=== PATIENT | male | born 1965 | race Caucasian/White ===

== ENCOUNTER 2016-07-03 20:20 | Emergency (ER) | payer BC ==
[2016-07-03 21:25] VITALS: TEMP 98.7
[2016-07-03] MEDS ORDERED: ONDANSETRON ODT 4 MG TAB PO STA (22:06)
[2016-07-03] MEDS ORDERED: MORPHINE SULFATE 10 MG/ML SYRINGE IM STA (22:06)
--- NOTE | 2016-07-03 22:06 | ED ---
General Adult HPI - General Chief complaint: Abdominal Pain Stated complaint: Abd Pain/Back Pain/Poss Stones Time Seen by Provider: 07/03/16 21:50 Source: patient, RN notes reviewed Mode of arrival: ambulatory Limitations: no limitations - History of Present Illness Initial comments: This is a 51-year-old male presents with left flank pain from a known kidney stone. Patient states he was diagnosed with a left renal calculi 2 weeks ago and states it is 8 mm. Patient states he has not had any pain from the stone until today. Patient states the pain radiates to the front of his abdomen and is intermittent. Patient states his pain is 9.5 out of 10. Patient states he has some nausea when the pain gets really bad. Patient denies any vomiting, fever/chills, change in bowel or bladder function, hematuria or hematochezia. Patient states this pain is similar to pain he has had with renal stones in the past. Patient states he is scheduled for lithotripsy on 07/15/2016. Patient denies any recent fever, chills, shortness breath, chest pain, vomiting/diarrhea , back pain, numbness, tingling, headache, or visual changes, or any other complaints. - Related Data Home Medications Medication Instructions Recorded Confirmed Brimonidine Tartrate [Alphagan P 1 drops BOTH EYES BID 07/03/16 07/03/16 0.15% Ophth Soln] Levobunolol HCl [Betagan 0.5%] 1 drop LEFT EYE BID 07/03/16 07/03/16 Loteprednol Etabonate [Lotemax] 1 drop LEFT EYE BID 07/03/16 07/03/16 Previous Rx's Medication Instructions Recorded Naproxen [Naprosyn] 250 mg PO BID 7 Days 07/03/16 Tamsulosin HCl [Flomax] 0.4 mg PO DAILY 3 Days 07/03/16 Allergies Allergy/AdvReac Type Severity Reaction Status Date / Time amoxicillin Allergy Rash/Hives Verified 07/03/16 22:21 Review of Systems ROS Statement: Those systems with pertinent positive or pertinent negative responses have been documented in the HPI. ROS Other: All systems not noted in ROS Statement are negative. Past Medical History Additional Past Medical History / Comment(s): kidney stone, glaucoma History of Any Multi-Drug Resistant Organisms: None Reported Additional Past Surgical History / Comment(s): eye surgery Past Psychological History: No Psychological Hx Reported Smoking Status: Never smoker Past Alcohol Use History: Occasional Past Drug Use History: None Reported General Exam - General Exam Comments Initial Comments: General: The patient is awake and alert, in no distress, and does not appear acutely ill. Eye: Pupils are equal, round and reactive to light, extra-ocular movements are intact. No nystagmus. There is normal conjunctiva bilaterally. No signs of icterus. Ears: TMs pink and pearly with intact cone of light bilaterally. Normal external ear canals Nose: Nasal turbinates pink and moist Mouth and throat: There are moist mucous membranes and no oral lesions. Neck: The neck is supple, there is no tenderness or JVD. Cardiovascular: There is a regular rate and rhythm. No murmur, rub or gallop is appreciated. Respiratory: Lungs are clear to auscultation, respirations are non-labored, breath sounds are equal. No wheezes, stridor, rales, or rhonchi. Gastrointestinal: Soft, non-distended, non-tender abdomen without masses or organomegaly noted. There is no rebound or guarding present. No CVA tenderness. Bowel sounds are unremarkable. Musculoskeletal: Normal ROM, no tenderness. Strength 5/5. Sensation intact. Radial pulses equal bilaterally 2+. Neurological: A&O x 3. CN II-XII intact, There are no obvious motor or sensory deficits. Coordination appears grossly intact. Speech is normal. Skin: Skin is warm and dry and no rashes or lesions are noted. Psychiatric: Cooperative, appropriate mood & affect, normal judgment. Limitations: no limitations Course Vital Signs 07/03/16 07/03/16 21:23 23:37 Temperature 98.7 F 98.7 F Pulse Rate 100 65 Respiratory 20 18 Rate Blood Pressure 156/92 128/87 O2 Sat by Pulse 97 99 Oximetry Medical Decision Making - Medical Decision Making This is a 51-year-old male presents with pain from a left renal calculi. On physical exam patient is afebrile in the EC. Abdomen is soft and nontender. No CVA tenderness. Patient is given morphine and zofran in the EC for pain and nausea. Patient states his symptoms have improved after this. Patient was receptive to being discharged home at this point. Patient will be given a prescription for Flomax and Naprosyn. I discussed return parameters. Patient refuses prescription for Zofran. I discussed the patient should follow-up with his urologist tomorrow or return to the EC for any worsening symptoms or for any further concerns. Patient and were receptive to this plan and patient was discharged home. I discussed this case with attending physician Dr. Doan who agrees with plan as stated above. Disposition Clinical Impression: Renal calculus, left Disposition: HOME SELF-CARE Condition: Good Instructions: Kidney Stones (ED) Additional Instructions: Please use medication as discussed. Please follow-up with urologist tomorrow. Please follow-up with family doctor in the next 2 days of symptoms have not improved. Please return to emergency room if the symptoms increase or worsen or for any other concerns. Prescriptions: Naproxen [Naprosyn] 250 mg PO BID 7 Days Tamsulosin HCl [Flomax] 0.4 mg PO DAILY 3 Days Referrals: Paddy Holland MD [STAFF PHYSICIAN] - 1-2 days None,Stated [Primary Care Provider] - 1-2 days Williams Knowles MD [STAFF PHYSICIAN] - 1-2 days Time of Disposition: 23:23
[2016-07-03 23:38] VITALS: BP 128/87; PULSE 65; RESP 18
== END 2016-07-03 23:37 | disposition home or self-care (01) ==
LOC: EC 20:20
DX: N20.0 Calculus of kidney (principal); Z79.1 Long term (current) use of non-steroidal anti-inflammatories (NSAID); Z79.899 Other long term (current) drug therapy; Z88.0 Allergy status to penicillin; H40.9 Unspecified glaucoma; Z87.442 Personal history of urinary calculi
CPT/HCPCS: 99283; 96372; J2270

== ENCOUNTER → 2016-07-08 | Outpatient (CLI) | payer BC ==
[2016-07-08 09:31] LABS: EKG EKG PERFORMED
[2016-07-08 10:03] LABS: Basophils # (A) 0.1 k/uL (0-0.2); Basophils % (A) 1 %; CH 31.8; CHCM 33.5; Eosinophils # (A) 0.1 k/uL (0-0.7); Eosinophils % (A) 2 %; HCT 45.4 % (39.0-53.0); HDW 2.47; HGB 14.9 gm/dL (13.0-17.5); Luc # (Auto) 0.19; Luc % (Auto) 4; Lymphocytes # (A) 1.3 k/uL (1.0-4.8); Lymphocytes % (A) 23 %; MCH 31.4 pg (25.0-35.0); MCHC 32.9 g/dL (31.0-37.0); MCV 95.3 fL (80.0-100.0); Monocytes # (A) 0.3 k/uL (0-1.0); Monocytes % (A) 5 %; Neutrophils # (A) 3.7 k/uL (1.3-7.7); Neutrophils % (A) 66 %; RBC 4.76 m/uL (4.30-5.90); RDW 13.2 % (11.5-15.5); WBC 5.6 k/uL (3.8-10.6); WBC (Perox) 5.79
[2016-07-08 10:10] LABS: Partial Thromboplastin Time 23.6 sec (22.0-30.0); Prothrombin Time 10.5 sec (9.0-12.0)
[2016-07-08 10:18] LABS: Anion Gap 11 mmol/L; Blood Urea Nitrogen 21 mg/dL (9-20); Calcium 9.6 mg/dL (8.4-10.2); Carbon Dioxide 29 mmol/L (22-30); Chloride 102 mmol/L (98-107); Glucose 95 mg/dL (74-99); Non-African American GFR(MDRD) >60 (>60 ml/min/1.73 sqM); Sodium 142 mmol/L (137-145)
== END | disposition home or self-care (01) ==
LOC: LABPAT 09:21
PROVIDERS: ATTEND Urology
DX: Z01.818 Encounter for other preprocedural examination (principal); N20.0 Calculus of kidney; R06.02 Shortness of breath; R31.0 Gross hematuria; R35.0 Frequency of micturition; R53.83 Other fatigue
CPT/HCPCS: 80048; 85025; 85610; 85730; 87086; 93005

== ENCOUNTER 2016-07-15 07:21 | Day surgery (SDC) | payer BC ==
[2016-07-10 14:22] VITALS: BMI 24.3
[~2016-07-15 07:21] MED LIST: DEXAMETHASONE SOD PHOSPHATE 10 MG/ML 1 ML VIAL IV ONE; HYDROmorphone 1 MG/ML 1 ML SYRINGE IVP PRN; LACTATED RINGERS 1,000 ML IV SCH; LIDOCAINE 1% 20 ML VIAL (10MG/ML) FOR IV START INTRADERMA PRN; Pre Op ABX Message 1 EACH MISC MISCELLANE ONE
--- NOTE | 2016-07-15 07:24 | XR ---
EXAMINATION TYPE: XR KUB DATE OF EXAM: 07/15/2016 7:14 AM CLINICAL HISTORY: Flank pain and hematuria. TECHNIQUE: Single supine KUB image of the abdomen is obtained. COMPARISON: None. FINDINGS: There are 2-4 scattered calculi in left kidney identified. Evaluation is suboptimal due to overlying fecal material. Largest calculus measures 6 mm on long axis at the L3 vertebral body level in the lower pole. Rounded calcifications in the bilateral pelvis favor phleboliths. There is overall nonobstructive bowel gas pattern. Visualized osseous structures are intact. Os aceta buli on the right is noted. IMPRESSION: Left-sided nephrolithiasis as noted above.
[2016-07-15 07:45] VITALS: RESP 18; TEMP 98
[2016-07-15] MEDS ORDERED: LIDOCAINE 1% 20 ML VIAL (10MG/ML) FOR IV START INTRADERMA ONE (08:01)
[2016-07-15] MEDS ORDERED: LIDOCAINE 1% INJ 10MG/ML (20 ML MDV) ONE (08:15)
[2016-07-15] MEDS ORDERED: PROPOFOL 10 MG/ML 20 ML VIAL IV ONE (08:15)
[2016-07-15] MEDS ORDERED: MIDAZOLAM 2 MG/2 ML VIAL ONE (08:15)
[2016-07-15] MEDS ORDERED: fentaNYL (PF) 50 MCG/ML 2 ML AMP ONE (08:15)
--- NOTE | 2016-07-15 08:35 | P.OP ---
Date of Procedure: 07/15/16 Preoperative Diagnosis: Left renal stone Postoperative Diagnosis: Same Procedure(s) Performed: Extracorporeal shockwave lithotripsy left, 1500 shocks at energy level IV Anesthesia: MAC Surgeon: Steven Lara Pathology: none sent Condition: stable Disposition: PACU Indications for Procedure: The patient is a 51-year-old gentleman with a painful 6-7 mm left lower pole stone and comes for shockwave lithotripsy Description of Procedure: Patient was brought to the operating suite and placed on the lithotripsy table. The stone was seen in 2 views of fluoroscopy. A total of 1500 shocks at energy level IV administered to the stone and its fragments. The stone breaks up nicely. At the end of the procedure the patient's awake and returned recovery room good condition. He'll be discharged home upon recovery and follow -up in the office later this week.
[2016-07-15 09:18] VITALS: BP 137/89; PULSE 89
== END 2016-07-15 10:10 | disposition home or self-care (01) ==
LOC: ORWHC2ENDO 07:21
PROVIDERS: ATTEND Urology
DX: N20.0 Calculus of kidney (principal); Z80.42 Family history of malignant neoplasm of prostate; Z72.0 Tobacco use; Z79.899 Other long term (current) drug therapy; Z88.0 Allergy status to penicillin
CPT/HCPCS: 74000; 50590; J2250; J2001; J3010; J2704

== ENCOUNTER → 2016-07-22 | Outpatient (CLI) | payer BC ==
--- NOTE | 2016-07-22 09:10 | XR ---
EXAMINATION TYPE: XR KUB DATE OF EXAM ORDERED: 07/22/2016 9:05 AM HISTORY: N20.0 stones. COMPARISON: Previous study dated 07/15/2016. FINDINGS: There are stable phleboliths within the pelvis. The patient 6 mm left lower pole renal anastasiya culus is no longer visualized. No calcifications are seen overlying the kidneys. IMPRESSION: SUCCESSFUL ESWL OF THE LEFT KIDNEY.
== END | disposition home or self-care (01) ==
LOC: RADXRMAIN 08:56
PROVIDERS: ATTEND Urology
DX: N20.0 Calculus of kidney (principal)
CPT/HCPCS: 74000